=== PATIENT | male | born 1990 | race Two or more races ===

== ENCOUNTER 2023-08-05 09:37 | Outpatient (CLI) | payer OTHER ==
[~2023-08-05 09:37] MED LIST: NO HOME MEDS
== END 2023-08-05 23:59 | disposition home or self-care (01) ==
LOC: RAD 09:37 → EEVIPCON 10:00 → RAD 23:59
PROVIDERS: ATTEND Nurse Practitioner Family
DX: G40.89 Other seizures (principal)
CPT/HCPCS: 95816